=== PATIENT | male | born 1960 | race Caucasian/White ===

== ENCOUNTER → 2022-08-07 12:03 | Outpatient (CLI) | payer BC, SELFPAY ==
--- NOTE | ~2022-08-07 | MR_ITS ---
EXAMINATION: MRA brain wo con DATE: 08/07/2022 14:11 INDICATION: Vertebrobasilar artery syndrome. Loss of balance. TECHNIQUE: Magnetic resonance angiography (MRA) of the brain was performed without intravenous contra st with T1-weighted SPGR by the 3D [id number]-[id number] technique. Maximum intensity projection 3D-reconstr uctions were obtained. COMPARISON: None. FINDINGS: The vertebral arteries are codominant. There is no significant stenosis of basilar artery or the post erior cerebral arteries. Right posterior communicating artery is normal. A left posterior communicati ng artery is not identified. There is no significant stenosis of the intracranial internal carotid ar teries or anterior or middle cerebral arteries. Anterior communicating artery is normal. There is no aneurysm. IMPRESSION: 1. No aneurysm or significant intracranial arterial stenosis. Reviewed, dictated and finalized at location A.
--- NOTE | ~2022-08-07 | MR_ITS ---
EXAMINATION: MRA neck wo/w con DATE: 08/07/2022 14:11 INDICATION: Vertebrobasilar artery syndrome. TECHNIQUE: Magnetic resonance angiography (MRA) of the neck was performed without and with 20 mL Mult iHance intravenous contrast. COMPARISON: None. FINDINGS: Right vertebral artery is dominant. There is mild stenosis of left vertebral artery origin. There is plaque in the proximal internal carotid arteries. There is 44% stenosis of the proximal right interna l carotid artery relative to normal distal artery lumen diameter (NASCET criteria). There is 16% enriqueta nosis of the proximal left internal carotid artery relative to normal distal artery lumen diameter. IMPRESSION: 1. 44% stenosis of the proximal right internal carotid artery relative to normal distal artery lumen diameter (NASCET criteria). 2. 16% stenosis of the proximal left internal carotid artery relative to normal distal artery lumen d iameter. Reviewed, dictated and finalized at location A. IMPRESSION: 1. 44% stenosis of the proximal right internal carotid artery relative to julienne l distal artery lumen diameter (NASCET criteria). 2. 16% stenosis of the proximal left internal carotid artery relative to normal distal artery lumen diameter.
--- NOTE | ~2022-08-07 | MR_ITS ---
EXAMINATION: MR cervical spine wo/w con DATE: 08/07/2022 14:12 INDICATION: Vertebrobasilar artery syndrome TECHNIQUE: Magnetic resonance imaging (MRI) of the cervical spine was performed without intravenous c ontrast. Sequences included sagittal T2-weighted FSE, sagittal T2-weighted FS FSE, sagittal T1-weight ed FSE, axial MERGE and axial T2-weighted FSE. COMPARISON: None FINDINGS: Evaluation mildly limited by some motion artifact or blurring on multiple sequences including some re peated sequences. Bone alignment is normal. Vertebral body heights are normal. Bone marrow signal i ntensity is normal. Mild disc height loss at C6-C7 with associated annular fissure. Additional annula r fissure at C5-C6. There are additional annular fissures and small disc extrusions at T1-T2 and T2-T 3 with disc material extending 5 mm cephalad to the level of the inferior end plates of T1 and T2 res pectively. Cord signal intensity is normal. No abnormally enhancing lesions identified. The following disc levels are specifically discussed: C2-C3: Small left paracentral disc protrusion. There is mild right and moderate left uncovertebral shelly int osteoarthritis. There is mild bilateral facet joint osteoarthritis. There is mild left neural for aminal stenosis. There is minimal central canal stenosis. C3-C4: The disc does not extend beyond the endplate margin. There is moderate bilateral uncovertebral joint osteoarthritis. There is left and severe right facet joint osteoarthritis. There is moderate b ilateral neural foraminal stenosis. There is no central canal stenosis. C4-C5: The disc does not extend beyond the endplate margin. There is moderate left and severe right u ncovertebral joint osteoarthritis. There is moderate left and severe right facet joint osteoarthritis . There is moderate left and moderate to severe right neural foraminal stenosis. There is no central canal stenosis. C5-C6: Disc is mildly bulging with superimposed annular fissure and left paracentral to foraminal zon e disc protrusion. There is mild right and moderate left uncovertebral joint osteoarthritis. There is mild right and severe left facet joint osteoarthritis. There is moderate bilateral neural foraminal stenosis. There is mild central canal stenosis with indentation of the left ventral surface of the co rd. C6-C7: Disc is mildly bulging with annular fissure and superimposed small central disc protrusion The re is severe bilateral uncovertebral joint osteoarthritis. There is moderate right and severe left fa cet joint osteoarthritis. There is moderate bilateral neural foraminal stenosis. There is mild centra l canal stenosis. C7-T1: Disc is mildly bulging. There is mild right and moderate left uncovertebral joint osteoarthrit is. There is mild left and severe right facet joint osteoarthritis. There is mild bilateral neural fo raminal stenosis. There is mild central canal stenosis. IMPRESSION: 1. Mild cervical spondylosis with multilevel moderate to severe bilateral cervical facet osteoarthrit is. Reviewed, dictated and finalized at location A. IMPRESSION: 1. Mild cervical spondylosis with multilevel moderate to severe bilateral cervi karina facet osteoarthritis.
== END ==
PROVIDERS: PCP Family Medicine
DX: M47.22 Other spondylosis with radiculopathy, cervical region (principal); I65.23 Occlusion and stenosis of bilateral carotid arteries
CPT/HCPCS: 70544; 70549; 72156; A9577

== ENCOUNTER 2023-05-19 12:30 | Outpatient (RCR) | payer BC, SELFPAY ==
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
--- NOTE | 2023-04-21 11:41 | OPREHPOC ---
Outpatient Therapy Plan of Care This is a Multidisciplinary Plan of Care that may contain components documented by all disciplines (PT, OT, and ST.) PT Goal 1 Goal Pt will be independent in HEP Target Visit 8 PT Goal 2 Goal Pt will verbalize understanding of diagnosis and prognosis Target Visit 8 PT Problem 2 PT Problem #2 Pain PT Goal 1 Goal Pt will report worse pain at 3/10 Target Visit 8 PT Goal 2 Goal Pt will report resolution of LUE symptoms regardless of position Target Visit 8 PT Problem 3 PT Problem #3 Impaired Functional ADLs
--- NOTE | 2023-05-19 16:11 | PTOPDC ---
Assessment and note entered by Ira Andre, PT Assessment Status Discharge Diagnosis polyneuropathy, unspecified; Spondylosis w/out myleopathy or radiculopathy Subjective Information Notes the N/T is no longer constant, it has eased but is not gone. There are also times when it just comes back. Still gets decreased symptoms with right side head tilt. Still the first finger and thumb following up to shoulder. The irritating pain is in the shoulder but needles goes into arms. Neck just feels real stiff but with turning to right wlil hurt in left side of neck. Self-perceived improvement: 20-25% Reports when holding shoulders back that pain in shoulder and n/t resolves. Reports does his exercises when he can, states about 50% of the time. Reported Pain Level Pain Score 6,6: Self Report Assessment PT Clinical Summary Pt has attended therapy consistently for neck and shoulder pain, and radiculopathy. Pt reports traction feels though it helps at the time, but relief does not last. Cont to report high levels of pain and required modifications for positioning to resolve discomfort. As patient has made minimal progress with therapy, pt would benefit from referral to next higher level of care such as Orthopeadic consultation.
== END 2023-05-20 14:49 | disposition home or self-care (01) ==
LOC: ANHHIPT 12:30
PROVIDERS: PCP Family Medicine; Visit Provider Family Medicine
DX: M47.812 Spondylosis without myelopathy or radiculopathy, cervical region (principal); G62.9 Polyneuropathy, unspecified
CPT/HCPCS: 97012; 97014; 97110; 97140; 97162; 97530; 97750; G0283

== ENCOUNTER 2024-06-01 00:13 | Day surgery (SDC) | payer MEDICARE, SELFPAY ==
[2024-05-16 09:33] VITALS: BMI 36.5
--- NOTE | 2024-05-23 15:53 | PC.NURSE ---
Spoke with -Vandana regarding medication PLAVIX, she Verbalizes understanding that the last dose of his Plavix is to be taken on 05/27/2024 and he is to cont. his Aspirin and the Endoscopist will instruct them when to restart after the procedure.
[2024-06-01 08:25] VITALS: BP 160/77; PULSE 90; RESP 18; TEMP 36.1; O2SAT 99
[2024-06-01] MEDS: LACTATED RINGERS 1,000 ML 150 ML IV CONT (08:49)
[2024-06-01 08:53] LABS: Glucose Point of Care 125 mg/dl (65-105)
--- NOTE | 2024-06-01 09:19 | PM.HPGS ---
History of Present Illness History of Present Illness Consent: Risks, benefits, and alternatives have been discussed and questions answered. Patient agrees to proceed with procedure. Chief complaint: neoplasm screening Narrative: Rajendra Lala is a 63 year old male here for screening colonoscopy, last one 10 years ago Review of Systems Review of Systems: All systems reviewed & are unremarkable except as noted in HPI and below PMFSH Past Medical History Medical History (Updated 06/01/24 @ 09:23 by Mahin Temple MD) Cervical spondylosis Cervicalgia Diabetes DJD of shoulder Encounter for screening colonoscopy Hyperlipidemia Left shoulder pain Prostate cancer screening Right shoulder pain S/P angiogram of extremity Subacromial bursitis of both shoulders Surgical History Surgical History H/O colonoscopy 2018 H/O shoulder surgery Family History Family History Mother Hypertension Patient's mother is in good health Family history of diabetes mellitus in first degree relative Sibling Patient's brother is in good health Family history of kidney disease Family history of diabetes mellitus in first degree relative Family history of heart disease in male family member before age 55 Father Family history of heart disease in male family member before age 55, Onset Age: 80 Other Cerebrovascular accident Family history of cardiovascular disease Social History Social History Smoking packs per day: 1 Smoking cigarettes per day: 20.0 Smoking status: Current every day smoker Tobacco type: cigarettes Alcohol intake: never Substance use: never Living arrangements: with family Occupation/Education: occupation Spiritual care concerns: No Agree to blood products: Yes Meds Home Medications and Allergies Home Medications Medication Instructions Recorded Confirmed Type aspirin 81 mg tablet,delayed 81 mg PO DAILY 07/21/22 06/01/24 History release (Mendoza Low Dose Aspirin) cholecalciferol (vitamin D3) 50 50 mcg PO DAILY 07/21/22 06/01/24 History mcg (2,000 unit) capsule [id number]-xp-[id number] 300 mcg-K 60 1 tablet PO DAILY 07/21/22 06/01/24 History mcg-lycop 600 mcg-lutein 300 mcg tablet (Centrum Silver Men) zinc acetate 50 mg (zinc) capsule 50 mg PO DAILY 07/21/22 06/01/24 History atorvastatin 20 mg tablet 20 mg PO QHS #90 tabs 03/31/24 06/01/24 Rx celecoxib 200 mg capsule 200 mg PO DAILY #90 caps 03/31/24 06/01/24 Rx clopidogrel 75 mg tablet 75 mg PO DAILY #90 tabs 03/31/24 06/01/24 Rx losartan 50 mg tablet 50 mg PO DAILY #90 tabs 03/31/24 06/01/24 Rx metformin 500 mg tablet,extended 1,000 mg PO DAILY #180 tabs 03/31/24 06/01/24 Rx release 24 hr gabapentin 300 mg capsule 600 mg PO HS 05/16/24 06/01/24 History Allergies Allergy/AdvReac Type Severity Reaction Status Date / Time No Known Allergies Allergy Unknown Verified 06/01/24 08:24 Vital Signs Vital Signs - 24 hr 06/01/24 08:25 Temperature 97.0 F L Pulse Rate 90 Respiratory Rate 18 Blood Pressure 160/77 H Pulse Oximetry 99 Oxygen Delivery Room Air Exam Const: General: comfortable and no acute distress HENMT: Face/Nose/Sinus: Normal nares present Eyes: General: appearance normal, both eyes and all related structures Neck: Neck: no JVD Resp: Auscultation: clear to auscultation bilaterally Cardio: Rate: regular rate Rhythm: regular rhythm GI: Inspection: non-distended GI Palp: Yes Soft to palpation Skin: General skin exam: normal color Neuro: General: gait normal Speech: normal speech Extrem: General: normal to inspection Psych: Mental Status: mental status grossly normal Assessment and Plan Assessment and plan (1) Encounter for screening colonoscopy: Code(s): Z12.11 - Encounter for screening
[2024-06-01 09:41] VITALS: BP 131/57; PULSE 80; RESP 21; O2SAT 98
[2024-06-01 09:51] VITALS: BP 143/76; PULSE 77; RESP 21; O2SAT 99
[2024-06-01 10:01] VITALS: BP 130/75; PULSE 78; RESP 20; O2SAT 98
--- NOTE | 2024-06-06 08:40 | WPDANESEPPF ---
Anes - Initial Pre Proc Eval Procedure: Operation Date: 06/01/24 10:00 Proposed Procedures p Screening Colonoscopy - Mahin Temple MD Date/Time: 06/06/24 08:40 Surgeon: Mahin Temple MD Pre Op Diagnosis: neoplasm screening Patient Data Age: 63 Gender: M Height: 1.73 m Weight: 114.3 kg Last Vital Signs Temp 97.0 F L 06/01/24 08:25 Pulse 78 06/01/24 10:01 Resp 20 06/01/24 10:01 BP 130/75 06/01/24 10:01 Pulse Ox 98 06/01/24 10:01 O2 Del Method Room Air 06/01/24 10:01 Allergies Allergy/AdvReac Type Severity Reaction Status Date / Time No Known Allergies Allergy Unknown Verified 06/01/24 08:24 Home Medications Medication Instructions Recorded Confirmed Type aspirin 81 mg tablet,delayed 81 mg PO DAILY 07/21/22 06/01/24 History release (Mendoza Low Dose Aspirin) cholecalciferol (vitamin D3) 50 50 mcg PO DAILY 07/21/22 06/01/24 History mcg (2,000 unit) capsule [id number]-ti-sjacg 300 mcg-K 60 1 tablet PO DAILY 07/21/22 06/01/24 History mcg-lycop 600 mcg-lutein 300 mcg tablet (Centrum Silver Men) zinc acetate 50 mg (zinc) capsule 50 mg PO DAILY 07/21/22 06/01/24 History atorvastatin 20 mg tablet 20 mg PO QHS #90 tabs 03/31/24 06/01/24 Rx celecoxib 200 mg capsule 200 mg PO DAILY #90 caps 03/31/24 06/01/24 Rx clopidogrel 75 mg tablet 75 mg PO DAILY #90 tabs 03/31/24 06/01/24 Rx losartan 50 mg tablet 50 mg PO DAILY #90 tabs 03/31/24 06/01/24 Rx metformin 500 mg tablet,extended 1,000 mg PO DAILY #180 tabs 03/31/24 06/01/24 Rx release 24 hr gabapentin 300 mg capsule 600 mg PO HS 05/16/24 06/01/24 History Patient hx anesthesia problems: none Family hx anesthesia problems: none Results Review: All pre-operative results and documents have been reviewed as part of the pre-operative evaluation. [facility] Past Medical History Medical History (Updated 06/01/24 @ 09:23 by Mahin Temple MD) Cervical spondylosis Cervicalgia Diabetes DJD of shoulder Encounter for screening colonoscopy Hyperlipidemia Left shoulder pain Prostate cancer screening Right shoulder pain S/P angiogram of extremity Subacromial bursitis of both shoulders Surgical History Surgical History H/O colonoscopy 2018 H/O shoulder surgery Family History Family History Mother Hypertension Patient's mother is in good health Family history of diabetes mellitus in first degree relative Sibling Patient's brother is in good health Family history of kidney disease Family history of diabetes mellitus in first degree relative Family history of heart disease in male family member before age 55 Father Family history of heart disease in male family member before age 55, Onset Age: 80 Other Cerebrovascular accident Family history of cardiovascular disease Social History Social History Smoking packs per day: 1 Smoking cigarettes per day: 20.0 Smoking status: Current every day smoker Tobacco type: cigarettes Alcohol intake: never Substance use: never Living arrangements: with family Occupation/Education: occupation Spiritual care concerns: No Agree to blood products: Yes Anes - Eval Final PreProcedure Day of Procedure 06/06/24 08:40 Patient weight: obese Heart: regular rate and rhythm Lungs: clear to auscultation Airway: Mallampati scale class III Neurological: alert and oriented Last oral intake: >/= 8 hours ASA classification: III Emergent: no Anesthetic plan: proceed Anesthesia type and monitoring: general GIVS and standard monitoring Results Review: All pre-operative results and documents have been reviewed as part of the pre-operative evaluation. Informed Consent: The patient's anesthetic plan and its attendant risks and benefits were discussed with the patie
== END 2024-06-01 10:07 | disposition home or self-care (01) ==
PROVIDERS: PCP Nurse Practitioner Family; Visit Provider Internal Medicine Gastroenterology
PROC: 0DJD8ZZ Inspection of Lower Intestinal Tract, Via Natural or Artificial Opening Endoscopic (ICD-10-PCS; CPT 45378; principal; 2024-06-01 10:00)
DX: Z12.11 Encounter for screening for malignant neoplasm of colon (principal); D12.3 Benign neoplasm of transverse colon; K64.8 Other hemorrhoids; K57.30 Diverticulosis of large intestine without perforation or abscess without bleeding; E11.9 Type 2 diabetes mellitus without complications; E78.5 Hyperlipidemia, unspecified; M43.02 Spondylolysis, cervical region; F17.210 Nicotine dependence, cigarettes, uncomplicated; E66.9 Obesity, unspecified; Z68.38 Body mass index [BMI] 38.0-38.9, adult; Z79.82 Long term (current) use of aspirin; Z79.02 Long term (current) use of antithrombotics/antiplatelets; Z79.84 Long term (current) use of oral hypoglycemic drugs; Z98.890 Other specified postprocedural states; Z82.49 Family history of ischemic heart disease and other diseases of the circulatory system
CPT/HCPCS: 45385; 82948; 88305; J2704; J7120